=== PATIENT | female | born 1980 | race Caucasian/White ===

== ENCOUNTER 2019-06-11 11:22 | Day surgery (SDC) | payer BC, OTHER ==
[~2019-06-11] VITALS: Ht 165.1 cm; Wt 65.5 kg
[~2019-06-11 11:22] MED LIST: PREN1TAB49 PO; sulfasalazine PO
[2019-06-11 13:02] VITALS: Ht 165.1 cm; Wt 65.5 kg
[2019-06-11 13:34] VITALS: BP 108/83; PULSE 59; RESP 16
[2019-06-11] MEDS ORDERED: LIDOCAINE 2% (SDV) 5 ML INJ ONE (14:11)
[2019-06-11] MEDS ORDERED: PROPOFOL 40 ML ONE (14:11)
[2019-06-11] MEDS ORDERED: EPHEDrine 25 MG/5 ML SYG IV PRN (15:00)
[2019-06-11] MEDS ORDERED: ONDANSETRON 4 MG INJ IV PRN (15:00)
[2019-06-11] MEDS ORDERED: LABETALOL HCL 20MG INJ IV PRN (15:00)
[2019-06-11] MEDS ORDERED: hydrALAzine 20 MG INJ IV PRN (15:00)
[2019-06-11] MEDS ORDERED: FENTAnyl 50 MCG/ML VIAL IV PRN (15:00)
[2019-06-11 15:25] VITALS: BP 106/54; PULSE 56; RESP 18
== END 2019-06-11 17:22 | disposition home or self-care (01) ==
LOC: GIL 11:22
PROVIDERS: ATTEND Internal Medicine Gastroenterology
DX: K51.90 Ulcerative colitis, unspecified, without complications (principal); K64.8 Other hemorrhoids; J45.909 Unspecified asthma, uncomplicated
CPT/HCPCS: 45380; 88305; Z7610